=== PATIENT | male | born 1985 | race Caucasian/White ===

== ENCOUNTER 2017-02-28 18:13 | Emergency (ER) | payer SELFPAY ==
[~2017-02-28] VITALS: Ht 182.9 cm; Wt 115.9 kg
[2017-02-28 18:14] VITALS: BP 155/83
[2017-02-28] MEDS ORDERED: NORCOTAB PO (19:10)
--- NOTE | 2017-02-28 19:29 | REP ---
LEFT ANKLE SERIES: Four views of the left ankle were performed. There is no fracture or dislocation. There is mild posterior calcaneal spurring. The ankle mortise is anatomic. Rounded calcific density adjacent to the medial malleolus appear to represent an old avulsion fracture. IMPRESSION: No acute fracture or dislocation. Signed by Moises Card MD 02/28/2017 08:20 P
== END 2017-02-28 19:32 | disposition home or self-care (01) ==
LOC: M ED 18:13
DX: S93.492A Sprain of other ligament of left ankle, initial encounter (principal); W19.XXXA Unspecified fall, initial encounter; Y92.099 Unspecified place in other non-institutional residence as the place of occurrence of the external cause; Y93.89 Activity, other specified; Y99.9 Unspecified external cause status; I10 Essential (primary) hypertension; F17.200 Nicotine dependence, unspecified, uncomplicated

== ENCOUNTER → 2020-08-17 | Outpatient (REF) | payer SELFPAY ==
[~2020-08-17] MED LIST: HYDR-3715 PO
[2020-08-17 17:20] LABS: BASO % 0.5 % (0.0-1.0); EOS # 0.3 10^3/uL (0.0-0.5); EOS % 4.1 % (0.0-3.0); HEMATOCRIT 44.8 % (42.0-52.0); LYMPH # 1.6 10^3/uL (1.5-5.0); LYMPH % 25.4 % (24.0-44.0); MEAN CORPUSCULAR HEMOGLOBIN 30.4 pg (27.0-33.0); MEAN CORPUSCULAR HGB CONC 33.5 g/dl (32.0-36.5); MEAN CORPUSCULAR VOLUME 90.7 fl (80.0-96.0); MONO # 0.4 10^3/uL (0.0-0.8); MONO % 6.2 % (0.0-5.0); NEUTROPHILS # 3.9 10^3/uL (1.5-8.5); NEUTROPHILS % 63.6 % (36.0-66.0); PLATELET COUNT, AUTOMATED 175 10^3/uL (150-450); RED BLOOD COUNT 4.94 10^6/uL (4.30-6.10); WHITE BLOOD COUNT 6.1 10^3/uL (4.0-10.0)
[2020-08-17 17:44] LABS: ALBUMIN 4.5 GM/DL (3.2-5.2); ALT/SGPT 40 U/L (12-78); BILIRUBIN,TOTAL 0.3 MG/DL (0.2-1.0); BLOOD UREA NITROGEN 15 MG/DL (7-18); CARBON DIOXIDE LEVEL 28 MEQ/L (21-32); CHLORIDE LEVEL 108 MEQ/L (98-107); CHOLESTEROL LEVEL 183 MG/DL (<200); CREATININE FOR GFR 0.95 MG/DL (0.70-1.30); GLOMERULAR FILTRATION RATE > 60.0 (>60); GLUCOSE, FASTING 120 MG/DL (70-100); HDL CHOLESTEROL 61 MG/DL (>40); LDL CHOLESTEROL 92 MG/DL (<100); NON-HDL-C 122 MG/DL; POTASSIUM SERUM 4.6 MEQ/L (3.5-5.1); SODIUM LEVEL 143 MEQ/L (136-145); THYROID STIMULATING HORMONE 0.879 uIU/ML (0.358-3.740); TOTAL PROTEIN 7.3 GM/DL (6.4-8.2); TRIGLYCERIDES LEVEL 149 MG/DL (<150)
== END ==
LOC: M LAB REF 16:33
PROVIDERS: ATTEND Family Medicine Addiction Medicine
DX: I10 Essential (primary) hypertension (principal)

== ENCOUNTER 2020-09-11 20:30 | Emergency (ER) | payer BC ==
[~2020-09-11] VITALS: Ht 182.9 cm; Wt 105.6 kg
--- OUTSIDE RECORDS SUMMARY | 2020-09-11 20:37 | CCD ---
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 Results Lab Results Date Name Specimen Result Interpretation Description Value Range Status Address 08/17/2020 CBC W/ Auto Diff Normal White Blood Count 6.1 10 4.0-10.0 10 [facility]: [address] [place] [address] Normal Red Blood Count 4.94 10 4.30-6.10 10 [facility]: [address] [place] [address] Normal Hemoglobin 15.0 g/dL 13.5-17.5 g/dL [facility]: [address] [place] [address] Normal Hematocrit 44.8 % 42.0-52.0 % [facility]: [address] [place] [address] Normal Mean Corpuscular Volume 90.7 fL 80.0 -96.0 fL [facility]: [address] [place] [address] Normal Mean Corpuscular Hemoglobin 30.4 pg 27.0-33.0 pg [facility]: [address] [place] [address] Normal Mean Corpuscular HGB Conc 33.5 g/dL 32.0-36.5 g/dL [facility]: [address] [place] [address] Normal Red Cell Distribution Width 12.2 % 1 1.5-14.5 % [facility]: [address] [place] [address] Normal Platelet Count, Automated 175 10 150 -450 10 [facility]: [address] [place] [address] Normal Neutrophils % 63.6 % 36.0-66.0 % [facility]: [address] Normal Lymph % 25.4 % 24.0-44.0 % Health system: [address] High [place] % 6.2 % 0.0-5.0 % [facility]: [address] [place] [address] High Eos % 4.1 % 0.0-3.0 % [facility]: [address] [place] [address] Normal Baso % 0.5 % 0.0-1.0 % [facility]: [address] [place] [address] Normal Immature Granulocyte % 0.2 % 0-3.0 % [facility]: [address] [place] [address] Normal Nucleated Red Blood Cell % 0.0 % 0- 0 % [facility]: [address] [place] [address] Normal Neutrophils # 3.9 10 1.5-8.5 10 [facility]: [address] Normal Lymph # 1.6 10 1.5-5.0 10 [facility]: [address] [place] [address] Normal [place] # 0.4 10 0.0-0.8 10 [facility]: [address] [place] [address] Normal Eos # 0.3 10 0.0-0.5 10 [facility]: [address] Normal Baso # 0.0 10 0.0-0.2 10 [facility]: [address] [place] [address] 08/17/2020 CMP, Serum or Plasma Blood venous High Glu cose, Fasting 120 mg/dL 70-100 mg/dL [facility] nter: [address] [place] [address] Blood venous Normal Blood Urea Nitrogen 15 mg/dL 7-18 mg/dL [facility]: [address] [place] [address] Blood venous Normal Creatinine for GFR 0.95 mg/dL 0.70-1.30 mg/dL [facility]: [address] [place] [address] Blood venous Normal Glomerular Filtration Rate > 60.0 >60 [facility]: [address] Blood venous Normal Sodium Level 143 mEq/L 136-14 5 mEq/L [facility]: [address] Blood venous Normal Potassium Serum 4.6 mEq/L 3.5 -5.1 mEq/L [facility]: [address] Blood venous High Chloride Level 108 mEq/L 98-1 07 mEq/L [facility]: [address] Blood venous Normal Carbon Dioxide Level 28 mEq/L 21-32 mEq/L [facility]: [address] Blood venous Low Anion Gap 7 mEq/L 8-16 mEq/L [facility]: [address] Blood venous Normal Calcium Level 9.0 mg/dL 8.5-1 0.1 mg/dL [facility]: [address] Blood venous Normal AST/SGOT 15 U/L 7-37 U/L Sofia suhas [facility]: [address] Blood venous Normal ALT/SGPT 40 U/L 12-78 U/L [facility]: [address] Blood venous Normal Alkaline Phosphatase 84 U/L 4 5-117 U/L [facility]: [address] Blood venous Normal Bilirubin,total 0.3 mg/dL 0.2 -1.0 mg/dL [facility]: [address] Blood venous Normal Total Protein 7.3 gm/dL 6.4-8 .2 gm/dL [facility]: [address] Blood venous Normal Albumin 4.5 gm/dL 3.2-5.2 gm/ dL [facility]: [address] Blood venous Normal Albumin/globulin Ratio 1.6 [facility]: [address] 08/17/2020 Lipid Panel, Blood Normal Triglycerides Lev el 149 mg/dL <150 mg/dL [facility]: [address] Normal Cholesterol Level 183 mg/dL <200 mg/ dL Final [facility]: [address] Normal HDL Cholesterol 61 mg/dL >40 mg/dL F inal [facility]: [address] Normal LDL Cholesterol 92 mg/dL <100 mg/dL Final [facility]: [address] Normal Non-hdl-c 122 mg/dL Final [facility]: [address] Normal Cholesterol Risk Ratio 3.000 <5 Final [facility]: [address] 08/17/2020 TSH, Serum or Plasma Blood venous Normal Thyroid Stimulating Hormone 0.879 uIU/mL 0.358-3.740 uIU/mL Final [facility]: [address] Past Encounters 08/17/2020 Hypertensive Disorder; Active or Passive Immunization; Vasectomy Requested; Dizziness Nando Diaz MD: [address] [place] [address], Ph. Social History Tobacco Smoking Status Former Smoker Vaccine List Vaccine Type Tdap .5 mL Plan of Care Reminders Provider Appointments None recorded. Lab None recorded. Referral None recorded. Procedures None recorded. Surgeries None recorded. Imaging None recorded. Vitals 08/17/2020 08:20AM ESTABLISHED [id number] Height Weight BMI Blood Pressure 71 in 231 lbs 8 oz 32.3 kg/m2 126/81 mm[Hg] 04/12/2020 Height Weight Blood Pressure 71 in 266 lbs 4.96 oz 141/96 mm[Hg]
--- OUTSIDE RECORDS SUMMARY | 2020-09-11 20:37 | CCD ---
Author Author [facility] Organization [facility] Address Unknown Phone Unavailable Care Team Providers Care Wind Science And Planning Name Role Phone Adry, Colleen Unavailable Unavailable PROBLEMS No Information ALLERGIES No Known Allergies ENCOUNTERS from 1986 to 2020-09-08 Encounter Location [place] [address] Aug, Colleen Rider Urinary frequency R35.0 IMMUNIZATIONS No Information SOCIAL HISTORY Sex Assigned At : Social History Observation Description Sex Assigned At Unknown REASON FOR REFERRAL No Information VITAL SIGNS Height 67 in Aug, Weight 221 lbs Aug, BMI 34.61 kg/m2 Aug, Temperature 98.2 degrees Fahrenheit Aug, Heart Rate 67 /min Aug, Respiratory Rate 16 /min Aug, Oximetry 99 % Aug, Blood pressure systolic 140 mmHg Aug, Blood pressure diastolic 90 mmHg Aug, MEDICATIONS No Known Medications PROCEDURES No Information RESULTS Component Value Reference Range URINALYSIS Reviewed date:09/07/2020 15:29:55 Interpretation: Performing Lab: URINE COLOR. DARK YELLOW URINE APPEARANCE CLEAR URINE GLUCOSE (UA) NEGATIVE NEGATIVE URINE BILIRUBIN NEGATIVE NEGATIVE URINE KETONE NEGATIVE NEGATIVE SPECIFIC GRAVITY,URINE 1.025 1.001-1.035 URINE BLOOD 2+(MODERATE) NEGATIVE PH,URINE 5.5 5.0-9.0 URINE PROTEIN NEGATIVE NEGATIVE URINE UROBILINOGEN NORMAL(0.2-1) 0-1 URINE NITRATE NEGATIVE NEGATIVE URINE LEUKOCYTE ESTERASE NEGATIVE NEGATIVE REASON FOR VISIT UTI SX MEDICAL (GENERAL) HISTORY Type Description Date Surgical History No know Surgical history Goals Section No Information Health Concerns No Information MEDICAL EQUIPMENT No Information MENTAL STATUS No Information FUNCTIONAL STATUS No Information ASSESSMENTS Encounter Date Diagnosis Assessment Notes Treatment Notes Treatm ent Clinical Notes Aug, Urinary frequency (ICD-10 - R35.0) Urinalysis not indicative of UTI, previous culture negative. Pt advised need to f/u with PCP for further evaluation, no acute treatment at this time pending culture results. Pt v/u and agreeable. Frequent Urination: Care Instructions material was printed Time spent with pt 15 minutes. PLAN OF TREATMENT Treatment Notes Assessment Notes Clinical Notes Urinary frequency Urinalysis not indicative of UTI, previous culture negative. Pt advised need to f/u with PCP for further evaluation, no acute treatment at this time pending culture results. Pt v/u and agreeable.Frequent Urination: Care Instructions material was printed Time spent with pt 15 minutes. Treatment Notes Test Name Order Date URINE CULTURE, ROUTINE 2020-09-08 Next Appt Details with PCP Reason: Provider Name:Rosy Blount, 3 04:00:00 PM, [address] [place] [address], [phone], Insurance Providers Payer Name Payer Address Payer Phone Insured Name Patient Relati onship to Insured Coverage Start Date Coverage End Date [facility] [address] [address] [facility] [id number] [phone] Lukas Preston
--- OUTSIDE RECORDS SUMMARY | 2020-09-11 20:37 | CCD ---
Author Author [facility] Organization [facility] 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 Name Role Phone Aylin Smith Unavailable PROBLEMS No Information ALLERGIES No Known Allergies ENCOUNTERS from 1986 to 2020-09-07 Encounter Location [place] [address] Aug, Aylin Smith Dysuria R30.0 and Acute cystitis with he maturia N30.01 IMMUNIZATIONS No Information SOCIAL HISTORY Sex Assigned At : Social History Observation Description Sex Assigned At Unknown REASON FOR REFERRAL No Information VITAL SIGNS Height 67 in Aug, Temperature 98.4 degrees Fahrenheit Aug, Heart Rate 81 /min Aug, Respiratory Rate 18 /min Aug, Oximetry 97 % Aug, Blood pressure systolic 142 mmHg Aug, Blood pressure diastolic 84 mmHg Aug, MEDICATIONS No Known Medications PROCEDURES No Information RESULTS Component Value Reference Range URINALYSIS Reviewed date:08/28/2020 16:14:52 Interpretation: Performing Lab: URINE COLOR. YELLOW URINE APPEARANCE CLEAR URINE GLUCOSE (UA) NEGATIVE NEGATIVE URINE BILIRUBIN NEGATIVE NEGATIVE URINE KETONE NEGATIVE NEGATIVE SPECIFIC GRAVITY,URINE 1.025 1.001-1.035 URINE BLOOD TRACE NEGATIVE PH,URINE 5.5 5.0-9.0 URINE PROTEIN NEGATIVE NEGATIVE URINE UROBILINOGEN NORMAL(0.2-1) 0-1 URINE NITRATE NEGATIVE NEGATIVE URINE LEUKOCYTE ESTERASE NEGATIVE NEGATIVE REASON FOR VISIT possible UTI, UTI AR MEDICAL (GENERAL) HISTORY Type Description Date Surgical History No know Surgical history Goals Section No Information Health Concerns No Information MEDICAL EQUIPMENT No Information MENTAL STATUS No Information FUNCTIONAL STATUS No Information ASSESSMENTS Encounter Date Diagnosis Assessment Notes Treatment Notes Treatm ent Clinical Notes Aug, Dysuria (ICD-10 - R30.0) Time spent 10 minutes Aug, Acute cystitis with hematuria (ICD-10 - N30.01) Aug, Other Pt with UTI. Binh l treat with antibiotics and contact pt if medication needs to be changed based on culture results. Pt agrees with plan as outlined above. All questions were answered to the best of the providers ability. Patient verbalized understanding of instructions and education provided. Patient agrees if symptoms worsen or fail to improve they will return to the [facility] or go to the ER. PLAN OF TREATMENT Treatment Notes Assessment Notes Clinical Notes Dysuria Time spent 10 minute s Treatment Notes Test Name Order Date URINE CULTURE 2020-09-07 Next Appt Details prn Reason: Insurance Providers Payer Name Payer Address Payer Phone Insured Name Patient Relati onship to Insured Coverage Start Date Coverage End Date [facility] OF [facility] [address] [address] [facility] [id number] Lukas Preston self
--- OUTSIDE RECORDS SUMMARY | 2020-09-11 20:38 | CCD ---
Author Author [facility] Organization [facility] Address Unknown Phone Unavailable Care Team Providers Care Chief Librarian Branch Or Department Name Role Phone Mary Diaz MD Unavailable Unavailable Mary Diaz MD Unavailable Unavailable Mary Diaz MD Unavailable Unavailable Mary Diaz MD Unavailable Unavailable Mary Diaz MD Unavailable Unavailable Mary Diaz MD Unavailable Unavailable Mary Diaz MD Unavailable Unavailable Mary Diaz MD Unavailable Unavailable Mary Diaz MD Unavailable Unavailable Mary Diaz MD Unavailable Unavailable Mary Diaz MD Unavailable Unavailable Mary Diaz MD Unavailable Unavailable Mary Diaz MD Unavailable Unavailable Mary Diaz MD Unavailable Unavailable Mary Diaz MD Unavailable Unavailable Mary Diaz MD Unavailable Unavailable Mary Diaz MD Unavailable Unavailable Mary Diaz MD Unavailable Unavailable Mary Diaz MD Unavailable Unavailable Mary Diaz MD Unavailable Unavailable Mary Diaz MD Unavailable Unavailable Mary Diaz MD Unavailable Unavailable Mary Diaz MD Unavailable Unavailable Mary Diaz MD Unavailable Unavailable Mary Diaz MD Unavailable Unavailable Mary Diaz MD Unavailable Unavailable Mary Diaz MD Unavailable Unavailable Mary Diaz MD Unavailable Unavailable Mary Diaz MD Unavailable Unavailable Mary Diaz MD Unavailable Unavailable Mary Diaz MD Unavailable Unavailable Mary Diaz MD Unavailable Unavailable Mary Diaz MD Unavailable Unavailable Mary Diaz MD Unavailable Unavailable Mary Diaz MD Unavailable Unavailable Mary Diaz MD Unavailable Unavailable Mary Diaz MD Unavailable Unavailable Mary Diaz MD Unavailable Unavailable Mary Diaz MD Unavailable Unavailable Mary Diaz MD Unavailable Unavailable Mary Diaz MD Unavailable Unavailable Mary Diaz MD Unavailable Unavailable Mary Diaz MD Unavailable Unavailable Mary Diaz MD Unavailable Unavailable Mary Diaz MD Unavailable Unavailable Mary Diaz MD Unavailable Unavailable Mary Diaz MD Unavailable Unavailable Mary Diaz MD Unavailable Unavailable Mary Diaz MD Unavailable Unavailable Mary Diaz MD Unavailable Unavailable Mary Diaz MD Unavailable Unavailable Mary Diaz MD Unavailable Unavailable Mary Diaz MD Unavailable Unavailable Mary Diaz MD Unavailable Unavailable Mary Diaz MD Unavailable Unavailable Mary Diaz MD Unavailable Unavailable Mary Diaz MD Unavailable Unavailable Mary Diaz MD Unavailable Unavailable Mary Diaz MD Unavailable Unavailable Mary Diaz MD Unavailable Unavailable Mary Diaz MD Unavailable Unavailable Mary Diaz MD Unavailable Unavailable Mary Diaz MD Unavailable Unavailable Mary Diaz MD Unavailable Unavailable Mary Diaz MD Unavailable Unavailable Joe, Mary Collier MD Unavailable Unavailable Joe, Mary Collier MD Unavailable Unavailable Mary Diaz MD Unavailable Unavailable Mary Diaz MD Unavailable Unavailable Joe, Mary Collier MD Unavailable Unavailable Mary Diaz MD Unavailable Unavailable Joe, Mary Collier MD Unavailable Unavailable Joe, Mary Collier MD Unavailable Unavailable Joe, Mary Collier MD Unavailable Unavailable Joe, Mary Collier MD Unavailable Unavailable Joe, Mary Collier MD Unavailable Unavailable Mary Diaz MD Unavailable Unavailable Joe, Mary oCllier MD Unavailable Unavailable Mary Diaz MD Unavailable Unavailable Mary Diaz MD Unavailable Unavailable Mary Diaz MD Unavailable Unavailable Mary Diaz MD Unavailable Unavailable Mary Diaz MD Unavailable Unavailable Mary Diaz MD Unavailable Unavailable Mary Diaz MD Unavailable Unavailable Mary Diaz MD Unavailable Unavailable Mary Diaz MD Unavailable Unavailable Mary Diaz MD Unavailable Unavailable Mary Diaz MD Unavailable Unavailable Adry, Reginah W Colleen STEAK SAUCE MAKER-C Unavailable Unavailabl e Adry, Reginah W Colleen STEAK SAUCE MAKER-C Unavailable Unavailabl e Adry, Reginah W Colleen STEAK SAUCE MAKER-C Unavailable Unavailabl e Adry, Reginah W Colleen STEAK SAUCE MAKER-C Unavailable Unavailabl e Adry, Reginah W Colleen STEAK SAUCE MAKER-C Unavailable Unavailabl e Adry, Reginah W Colleen STEAK SAUCE MAKER-C Unavailable Unavailabl e Adry, Reginah W Colleen STEAK SAUCE MAKER-C Unavailable Unavailabl e Adry, Reginah W Colleen STEAK SAUCE MAKER-C Unavailable Unavailabl e Adry, Reginah W Colleen STEAK SAUCE MAKER-C Unavailable Unavailabl e Adry, Reginah W Oclleen STEAK SAUCE MAKER-C Unavailable Unavailabl e Adry, Reginah W Colleen STEAK SAUCE MAKER-C Unavailable Unavailabl e Adry, Reginah W Colleen STEAK SAUCE MAKER-C Unavailable Unavailabl e Adry, Vinod W Colleen STEAK SAUCE MAKER-C Unavailable Unavailabl e Adry, Vinod W Colleen STEAK SAUCE MAKER-C Unavailable Unavailabl e Adry, Manuelinaelmer W Colleen STEAK SAUCE MAKER-C Unavailable Unavailabl e Adry, Vinod W Colleen STEAK SAUCE MAKER-C Unavailable Unavailabl e Adry, Reginaelmer W Colleen STEAK SAUCE MAKER-C Unavailable Unavailabl e Adry, Reginaelmer W Colleen STEAK SAUCE MAKER-C Unavailable Unavailabl e Adry, Reginaelmer W Colleen STEAK SAUCE MAKER-C Unavailable Unavailabl e Adry, Reginaelmer W Colleen STEAK SAUCE MAKER-C Unavailable Unavailabl e Adry, Manuelinaelmer W Colleen STEAK SAUCE MAKER-C Unavailable Unavailabl e Adry, Vinod W Colleen STEAK SAUCE MAKER-C Unavailable Unavailabl e Adry, Vinod W Colleen STEAK SAUCE MAKER-C Unavailable Unavailabl e Adry, Vinod W Colleen STEAK SAUCE MAKER-C Unavailable Unavailabl e Adry, Manuelinaelmer W Colleen STEAK SAUCE MAKER-C Unavailable Unavailabl e Adry, Vinod W Colleen STEAK SAUCE MAKER-C Unavailable Unavailabl e Adry, Vinod W Colleen STEAK SAUCE MAKER-C Unavailable Unavailabl e Adry, Vinod W Colleen STEAK SAUCE MAKER-C Unavailable Unavailabl e Adry, Vinod W Colleen STEAK SAUCE MAKER-C Unavailable Unavailabl e Adry, Vinod W Colleen STEAK SAUCE MAKER-C Unavailable Unavailabl e Adry, Vinod W Colleen STEAK SAUCE MAKER-C Unavailable Unavailabl e Adry, Regfranco W Colleen STEAK SAUCE MAKER-C Unavailable Unavailabl e Mary Diaz MD Unavailable Unavailable Mary Diaz MD Unavailable Unavailable Mary Diaz MD Unavailable Unavailable Mary Diaz MD Unavailable Unavailable Mary Diaz MD Unavailable Unavailable Mary Diaz MD Unavailable Unavailable Mary Diaz MD Unavailable Unavailable Mary Diaz MD Unavailable Unavailable Mary Diaz MD Unavailable Unavailable Mary Diaz MD Unavailable Unavailable Mary Diaz MD Unavailable Unavailable Mary Diaz MD Unavailable Unavailable Mary Diaz MD Unavailable Unavailable Mary Diaz MD Unavailable Unavailable Mary Diaz MD Unavailable Unavailable Mary Diaz MD Unavailable Unavailable Mayr Diaz MD Unavailable Unavailable Mary Diaz MD Unavailable Unavailable Mary Diaz MD Unavailable Unavailable Mary Diaz MD Unavailable Unavailable Mary Diaz MD Unavailable Unavailable Mary Diaz MD Unavailable Unavailable Mayr Diaz MD Unavailable Unavailable Mary Diaz MD Unavailable Unavailable Mary Diaz MD Unavailable Unavailable Mary Diaz MD Unavailable Unavailable Mary Diaz MD Unavailable Unavailable Mary Diaz MD Unavailable Unavailable Mary Diaz MD Unavailable Unavailable Mary Diaz MD Unavailable Unavailable Mary Diaz MD Unavailable Unavailable Mary Diaz MD Unavailable Unavailable Mary Diaz MD Unavailable Unavailable Mary Diaz MD Unavailable Unavailable Mary Diaz MD Unavailable Unavailable Mary Diaz MD Unavailable Unavailable Mary Diaz MD Unavailable Unavailable Mary Diaz MD Unavailable Unavailable Mary Diaz MD Unavailable Unavailable Mary Diaz MD Unavailable Unavailable Mary Diaz MD Unavailable Unavailable Mary Diaz MD Unavailable Unavailable Mary Diaz MD Unavailable Unavailable Mary Diaz MD Unavailable Unavailable Mary Diaz MD Unavailable Unavailable Mary Diaz MD Unavailable Unavailable Mary Diaz MD Unavailable Unavailable Mary Diaz MD Unavailable Unavailable Mary Diaz MD Unavailable Unavailable Mary Diaz MD Unavailable Unavailable Mary Diaz MD Unavailable Unavailable Mary Diaz MD Unavailable Unavailable Mary Diaz MD Unavailable Unavailable Mary Diaz MD Unavailable Unavailable Mary Diaz MD Unavailable Unavailable Mary Diaz MD Unavailable Unavailable Mary Diaz MD Unavailable Unavailable Mary Diaz MD Unavailable Unavailable Mary Diaz MD Unavailable Unavailable Mary Diaz MD Unavailable Unavailable Mary Diaz MD Unavailable Unavailable Mary Diaz MD Unavailable Unavailable Mary Diaz MD Unavailable Unavailable Mary Diaz MD Unavailable Unavailable Mary Diaz MD Unavailable Unavailable Mary Diaz MD Unavailable Unavailable Mary Diaz MD Unavailable Unavailable Mary Diaz MD Unavailable Unavailable Mary Diaz MD Unavailable Unavailable Mary Diaz MD Unavailable Unavailable Mary Diaz MD Unavailable Unavailable Mary Diaz MD Unavailable Unavailable Mary Diaz MD Unavailable Unavailable Mary Diaz MD Unavailable Unavailable Mary Diaz MD Unavailable Unavailable Mary Diaz MD Unavailable Unavailable Mary Diaz MD Unavailable Unavailable Mary Diaz MD Unavailable Unavailable Mary Diaz MD Unavailable Unavailable Mary Diaz MD Unavailable Unavailable Mary Diaz MD Unavailable Unavailable Mary Diaz MD Unavailable Unavailable Mary Diaz MD Unavailable Unavailable Mary Diaz MD Unavailable Unavailable Mary Diaz MD Unavailable Unavailable Mary Diaz MD Unavailable Unavailable Mary Diaz MD Unavailable Unavailable Mary Diaz MD Unavailable Unavailable Mary Diaz MD Unavailable Unavailable Rydberg, Aylin PA Unavailable Unavailable Rydberg, Aylin PA Unavailable Unavailable Rydberg, Aylin PA Unavailable Unavailable Rydberg, Aylin PA Unavailable Unavailable Rydberg, Aylin PA Unavailable Unavailable Rydberg, Aylin PA Unavailable Unavailable Rydberg, Aylin PA Unavailable Unavailable Rydberg, Aylin PA Unavailable Unavailable Rydberg, Aylin PA Unavailable Unavailable Rydberg, Aylin PA Unavailable Unavailable Rydberg, Aylin PA Unavailable Unavailable Rydberg, Aylin PA Unavailable Unavailable Rydberg, Aylin PA Unavailable Unavailable Rydberg, Aylin PA Unavailable Unavailable Rydberg, Aylin PA Unavailable Unavailable Rydberg, Aylin PA Unavailable Unavailable Rydberg, Aylin PA Unavailable Unavailable Rydberg, Aylin PA Unavailable Unavailable Rydberg, Aylin PA Unavailable Unavailable Rydberg, Aylin PA Unavailable Unavailable Rydberg, Aylin PA Unavailable Unavailable Rydberg, Aylin PA Unavailable Unavailable Adry, Reginah W Colleen STEAK SAUCE MAKER-C Unavailable Unavailabl e Adry, Reginah W Colleen STEAK SAUCE MAKER-C Unavailable Unavailabl e Adry, Reginah W Colleen STEAK SAUCE MAKER-C Unavailable Unavailabl e Adry, Reginah W Colleen STEAK SAUCE MAKER-C Unavailable Unavailabl e Adry, Regina W Colleen STEAK SAUCE MAKER-C Unavailable Unavailabl e Adry, Regina W Colleen STEAK SAUCE MAKER-C Unavailable Unavailabl e Adry, Regina W Colleen STEAK SAUCE MAKER-C Unavailable Unavailabl e Adry, Regina W Colleen STEAK SAUCE MAKER-C Unavailable Unavailabl e Adry, Regina W Colleen STEAK SAUCE MAKER-C Unavailable Unavailabl e Adry, Regina W Colleen STEAK SAUCE MAKER-C Unavailable Unavailabl e Adry, Regina W Colleen STEAK SAUCE MAKER-C Unavailable Unavailabl e Adry, Regina W Colleen STEAK SAUCE MAKER-C Unavailable Unavailabl e Adry, Regina W Colleen STEAK SAUCE MAKER-C Unavailable Unavailabl e Adry, Regina W Colleen STEAK SAUCE MAKER-C Unavailable Unavailabl e Adry, Regina W Colleen STEAK SAUCE MAKER-C Unavailable Unavailabl e Adry, Reginah W Colleen STEAK SAUCE MAKER-C Unavailable Unavailabl e Adry, Reginah W Colleen STEAK SAUCE MAKER-C Unavailable Unavailabl e Adry, Reginah W Colleen STEAK SAUCE MAKER-C Unavailable Unavailabl e Adry, Reginah W Colleen STEAK SAUCE MAKER-C Unavailable Unavailabl e Adry, Reginah W Colleen STEAK SAUCE MAKER-C Unavailable Unavailabl e Adry, Reginah W Colleen STEAK SAUCE MAKER-C Unavailable Unavailabl e Adry, Reginah W Colleen STEAK SAUCE MAKER-C Unavailable Unavailabl e Adry, Reginah W Colleen STEAK SAUCE MAKER-C Unavailable Unavailabl e Adry, Reginah W Colleen STEAK SAUCE MAKER-C Unavailable Unavailabl e Adry, Reginah W Colleen STEAK SAUCE MAKER-C Unavailable Unavailabl e Adry, Reginah W Colleen STEAK SAUCE MAKER-C Unavailable Unavailabl e Adry, Reginah W Colleen STEAK SAUCE MAKER-C Unavailable Unavailabl e Adry, Reginah W Colleen STEAK SAUCE MAKER-C Unavailable Unavailabl e Adry, Reginah W Colleen STEAK SAUCE MAKER-C Unavailable Unavailabl e Adry, Reginah W Colleen STEAK SAUCE MAKER-C Unavailable Unavailabl e Adry, Reginaelmer W Colleen STEAK SAUCE MAKER-C Unavailable Unavailabl e Adry, Reginah W Colleen STEAK SAUCE MAKER-C Unavailable Unavailabl e [facility] Unavailable Unavailable Rydberg, Aylin PA Unavailable Unavailable Rydberg, Aylin PA Unavailable Unavailable Rydberg, Aylin PA Unavailable Unavailable Rydberg, Aylin PA Unavailable Unavailable Rydberg, Aylin PA Unavailable Unavailable Rydberg, Aylin PA Unavailable Unavailable Rydberg, Aylin PA Unavailable Unavailable Rydberg, Aylin PA Unavailable Unavailable Rydberg, Aylin PA Unavailable Unavailable Rydberg, Aylin PA Unavailable Unavailable Rydberg, Aylin PA Unavailable Unavailable Rydberg, Aylin PA Unavailable Unavailable Rydberg, Aylin PA Unavailable Unavailable Rydberg, Aylin PA Unavailable Unavailable Rydberg, Aylin PA Unavailable Unavailable Rydberg, Aylin PA Unavailable Unavailable Rydberg, Aylin PA Unavailable Unavailable Rydberg, Aylin PA Unavailable Unavailable Rydberg, Aylin PA Unavailable Unavailable Rydberg, Aylin PA Unavailable Unavailable Rydberg, Aylin PA Unavailable Unavailable Luis Aylinelaina HOFFMAN Unavailable Unavailable Re-disclosure Warning The records that you are about to access may contain information from federally-assisted alcohol or drug abuse programs. If such information is present, then the following federally mandated warning applies: This information has been disclosed to you from records protected by federal confidentiality rules (42 CFR part 2). The federal rules prohibit you from making any further disclosure of this information unless further disclosure is expressly permitted by the written consent of the person to whom it pertains or as otherwise permitted by 42 CFR part 2. A general authorization for the release of medical or other information is NOT sufficient for this purpose. The Federal rules restrict any use of the information to criminally investigate or prosecute any alcohol or drug abuse patient.The records that you are about to access may contain highly sensitive health information, the redisclosure of which is protected by Article 27-F of the [facility] Public Health law. If you continue you may have access to information: Regarding HIV / AIDS; Provided by facilities licensed or operated by the [facility] Office of Mental Health; or Provided by the [facility] Office for People With Developmental Disabilities. If such information is present, then the following [facility] mandated warning applies: This information has been disclosed to you from confidential records which are protected by state law. State law prohibits you from making any further disclosure of this information without the specific written consent of the person to whom it pertains, or as otherwise permitted by law. Any unauthorized further disclosure in violation of state law may result in a fine or penitentiary sentence or both. A general authorization for the release of medical or other information is NOT sufficient authorization for further disc losure. Encounters Encounter Providers Location Date Indications Data Source(s ) Outpatient Attender: Colleen RUIZ EMERGENCY ROOM-LAB REF 09/07/2020 03:05:00 PM EST - 09/07/2020 03:05:00 PM [facility] Outpatient Attender: Colleen SHARMACConsultant: [facility] [id number] 09/07/2020 03:00:00 PM [facility] Outpatient Attender: Colleen RUIZ 09/07/2020 02:10:0 0 PM [facility] 09/07/2020 12:00:00 AM EST eCW1 ([facility]) Outpatient Attender: Aylin HOFFMAN EMERGENCY ROOM-LAB R EF 08/28/2020 03:45:00 PM EST - 08/28/2020 03:45:00 PM EST [facility] Outpatient Attender: Aylin HOFFMAN 08/28/2020 03:40:00 PM [facility] Outpatient Attender: Aylin Smith PAConsultant: [facility] [id number] 08/28/2020 03:38:00 PM EST [facility] Outpatient [facility] 08/28/2020 12:00:00 AM EST eCW1 ([facility]) Nando Diaz MD: [address] [place] [phone], Ph. Attender: Nando Diaz MD [facility] Medical 08/17/2020 12:00:00 AM EST [facility] ([facility]) Outpatient Attender: Nando Diaz MD 05/31/2020 10:01:01 AM EDT [facility] Outpatient Attender: Nando Diaz MD 05/19/2020 12:22:02 PM EDT [facility] Outpatient Attender: Nando Diaz MD 05/18/2020 09:52:00 AM EDT [facility] Outpatient Attender: Nando Diaz MD 04/13/2020 08:13:00 AM EDT [facility] Outpatient Attender: Nando Diaz MD 04/13/2020 08:01:01 AM EDT [facility] Outpatient Attender: Nando Diaz MD 04/13/2020 07:59:00 AM EDT [facility] Outpatient Attender: Nando Diaz MD 04/12/2020 02:56:01 PM EDT [facility] Outpatient Attender: Nando Diaz MD 04/12/2020 02:56:00 PM EDT [facility] Outpatient Attender: Nando Diaz MD 04/12/2020 10:47:00 AM EDT [facility] Outpatient Attender: Nando Diaz MD 04/11/2020 02:58:11 PM EDT [facility] Immunizations Vaccine Date Status Description Data Source(s) Tdap 08/17/2020 09:04:00 AM EST completed 08/17/2020 0.5 mL [place] ([facility]) Medications Medication Brand Name Start Date Product Form Dose Route Admi nistrative Instructions Pharmacy Instructions Status Indications Reaction Description Data Source(s) Sulfamethoxazole 800 MG / Trimethoprim 160 MG Oral Tab let 800-160 mg SULFAMETHOXAZOLE/TRIMETHOPRIM 08/29/2020 12:00:00 AM EST tablet 10 TAKE ONE TABLET BY MOUTH TWICE A DAY TAKE ONE TABLET BY MOUTH TWICE A DAY SOLD: 08/29/2020 [facility] 50 mg 05/18/2020 12:00:00 AM EDT tablet 30 TAKE ONE TABLET BY MOUTH ONCE DAILY TAKE ONE TABLET BY MOUTH ONCE DAILY SOLD: 05/22/2020 [facility] 50 mg 04/12/2020 12:00:00 AM EDT tablet 30 TAKE ONE TABLET BY MOUTH EVERY DAY TAKE ONE TABLET BY MOUTH EVERY DAY SOLD: 04/13/2020 [facility] Insurance Providers Payer name Policy type / Coverage type Policy ID Covered green party ID Covered green party's relationship to foley Policy [place] Plan Information [employer] [place] [id number] SPO VYS [id number] [place] PPO 302/[id number] SELF PAY ONLY [id number] SP [id number] Self Pay P [id number] S [id number] Self Pay P UNAVAILABLE S UNAVAILA BLE SELF PAY ONLY UNAVAILABLE SP UNAV AILABLE Problems, Conditions, and Diagnoses Code Display Name Description Problem Type Effective Dates Data Source(s) V04.81 Needs vaccination for influenza Needs vaccination for influenza 05/19/2020 12:21:46 PM EDT [facility] 401.9 Essential hypertension Essential hypertension 04/12/2020 02:55:40 PM EDT [facility] [id number] Hypertensive disorder Hypertensive Disorder Problem 04/12/2020 12:00:00 AM EDT [facility]) R35.0 Frequency of micturition FREQUENCY OF MICTURITION Diag nosis 09/07/2020 03:05:00 PM [facility] R30.0 Dysuria DYSURIA Diagnosis 08/28/2020 03:40:00 PM [facility] N30.01 Acute cystitis with hematuria ACUTE CYSTITIS WITH OJ TURIA Diagnosis 08/28/2020 03:40:00 PM [facility] Results ID Date Data Source [id number] 09/11/2020 02:35:00 PM [facility] Name Value Range Interpretation Code Description Data Carole rce(s) Supporting Document(s) [facility] ID Date Data Source [id number] 09/07/2020 03:24:00 PM [facility] Name Value Range Interpretation Code Description Data Carole rce(s) Supporting Document(s) URINE RBC 15-20 /hpf 0-3 [facility] URINE WBC 0-2 /hpf 0-5 [facility] URINE BACTERIA 1+ NONE SEEN [facility] URINE MUCUS 2+ NEGATIVE [facility] ID Date Data Source [id number] 09/07/2020 03:24:00 PM [facility] Name Value Range Interpretation Code Description Data Carole rce(s) Supporting Document(s) URINE COLOR. DARK YELLOW [facility] URINE APPEARANCE CLEAR [facility] URINE GLUCOSE (UA) NEGATIVE mg/dL NEGATIVE [facility] URINE BILIRUBIN NEGATIVE NEGATIVE [facility] URINE KETONE NEGATIVE mg/dL NEGATIVE [facility] al SPECIFIC GRAVITY,URINE 1.025 1.001-1.035 [facility] URINE BLOOD 2+(MODERATE) NEGATIVE [facility] PH,URINE 5.5 5.0-9.0 [facility] URINE PROTEIN NEGATIVE mg/dL NEGATIVE [facility] URINE UROBILINOGEN NORMAL(0.2-1) mg/dL 0-1 [facility] URINE NITRATE NEGATIVE NEGATIVE [facility] URINE LEUKOCYTE ESTERASE NEGATIVE NEGATIVE [facility] ID Date Data Source [id number] 09/07/2020 12:00:00 AM EST eCW1 ([facility]) Name Value Range Interpretation Code Description Data Carole rce(s) Supporting Document(s) DARK YELLOW URINE COLOR. eCW1 ([facility]) NEGATIVE NEGATIVE URINE BILIRUBIN eCW1 ([facility]note 3[facility] CLEAR URINE APPEARANCE eCW1 ([facility]) NEGATIVE NEGATIVE URINE GLUCOSE (UA) eCW1 ( [facility]) NEGATIVE NEGATIVE URINE KETONE eCW1 ([facility]) 5.5 5.0-9.0 PH,URINE eCW1 ([facility]) 2+(MODERATE) NEGATIVE URINE BLOOD eCW1 ([facility]) 1.025 1.001-1.035 SPECIFIC GRAVITY,URINE e CW1 ([facility]) NEGATIVE NEGATIVE URINE PROTEIN eCW1 ([facility]) NEGATIVE NEGATIVE URINE LEUKOCYTE ESTERASE eCW1 ([facility]) NORMAL(0.2-1) 0-1 URINE UROBILINOGEN eCW 1 ([facility]) NEGATIVE NEGATIVE URINE NITRATE eCW1 ([facility]) ID Date Data Source [id number] 08/31/2020 01:28:00 PM EST [facility] fidelina Name Value Range Interpretation Code Description Data Carole rce(s) Supporting Document(s) [facility] ID Date Data Source [id number] 08/28/2020 04:03:00 PM [facility] l Name Value Range Interpretation Code Description Data Carole rce(s) Supporting Document(s) URINE RBC 1-3 /hpf 0-3 [facility] URINE WBC 1-3 /hpf 0-5 [facility] ID Date Data Source [id number] 08/28/2020 03:56:00 PM EST [facility] l Name Value Range Interpretation Code Description Data Carole rce(s) Supporting Document(s) URINE COLOR. [facility] URINE APPEARANCE CLEAR [facility] l URINE GLUCOSE (UA) NEGATIVE mg/dL NEGATIVE [facility] URINE BILIRUBIN NEGATIVE NEGATIVE [facility] URINE KETONE NEGATIVE mg/dL NEGATIVE [facility] SPECIFIC GRAVITY,URINE 1.025 1.001-1.035 [facility] URINE BLOOD TRACE NEGATIVE H [facility] PH,URINE 5.5 5.0-9.0 [facility] URINE PROTEIN NEGATIVE mg/dL NEGATIVE [facility] fidelina URINE UROBILINOGEN NORMAL(0.2-1) mg/dL 0-1 [facility] URINE NITRATE NEGATIVE NEGATIVE [facility] URINE LEUKOCYTE ESTERASE NEGATIVE NEGATIVE [facility] ID Date Data Source [id number] 08/17/2020 09:00:00 AM EST [facility]) Name Value Range Interpretation Code Description Data Carole rce(s) Supporting Document(s) thyroid stimulating hormone 0.879 uIU/mL 0.358-3.740 normal Thyroid Stimulating Hormone [facility] ([facility]) ID Date Data Source [id number] 08/17/2020 09:00:00 AM EST [facility] ([facility]) Name Value Range Interpretation Code Description Data Carole rce(s) Supporting Document(s) triglycerides level 149 mg/dL <150 normal Triglycerides Le марина [facility] ([facility]) cholesterol level 183 mg/dL <200 normal Cholesterol Level [facility] ([facility]) HDL cholesterol 61 mg/dL >40 normal HDL Cholesterol ATHE ([facility]) Cholesterol in LDL [Mass/volume] in Serum or Plasma 92 mg/dL <1 00 normal LDL Cholesterol [facility] ([facility]) cholesterol risk ratio <5 normal Cholesterol R isk Ratio [facility] ([facility]) non-HDL-C 122 mg/dL normal Non-hdl-c [facility] ([facility]) ID Date Data Source [id number] 08/17/2020 09:00:00 AM EST [facility] ([facility]) Name Value Range Interpretation Code Description Data Carole rce(s) Supporting Document(s) blood urea nitrogen 15 mg/dL 7-18 normal Blood Urea Nitro gen [facility] ([facility]) glucose, fasting 120 mg/dL 70-100 Above high normal Glucose, Fas ting [facility] ([facility]) sodium level 143 mEq/L 136-145 normal Sodium Level [facility] (No [facility]) creatinine for GFR 0.95 mg/dL 0.70-1.30 normal Creatinine for GF R [facility] ([facility]) glomerular filtration rate > 60.0 >60 normal Glomerula r Filtration Rate [facility] ([facility]) potassium serum 4.6 mEq/L 3.5-5.1 normal Potassium Serum ATHE NA ([facility]) carbon dioxide level 28 mEq/L 21-32 normal Carbon Dioxide Level [facility] ([facility]) anion gap 7 mEq/L 8-16 Below low normal Anion Gap [facility] ( [facility]) chloride level 108 mEq/L 98-107 Above high normal Chloride Level [facility] ([facility]) alkaline phosphatase 84 U/L 45-117 normal Alkaline Phosph atase [facility] ([facility]) ALT/SGPT 40 U/L 12-78 normal ALT/SGPT [facility] ([facility]) calcium level 9.0 mg/dL 8.5-10.1 normal Calcium Level [facility] ( [facility]) bilirubin,total 0.3 mg/dL 0.2-1.0 normal Bilirubin,total ATHE NA ([facility]) AST/SGOT 15 U/L 7-37 normal AST/SGOT [facility] ([facility]) total protein 7.3 gm/dL 6.4-8.2 normal Total Protein [facility] ( [facility]) albumin/globulin ratio normal Albumin/globu sanchez Ratio [facility] ([facility]) albumin 4.5 gm/dL 3.2-5.2 normal Albumin [facility] ([facility]) ID Date Data Source [id number] 08/17/2020 09:00:00 AM EST [facility] ([facility]) Name Value Range Interpretation Code Description Data Carole rce(s) Supporting Document(s) white blood count 6.1 10 4.0-10.0 normal White Blood Count [facility] ([facility]) red blood count 4.94 10 4.30-6.10 normal Red Blood Count [facility] ([facility]) hemoglobin 15.0 g/dL 13.5-17.5 normal Hemoglobin [facility] ([facility]) mean corpuscular volume 90.7 fL 80.0-96.0 normal Mean Corpusc ular Volume [facility] ([facility]) hematocrit 44.8 % 42.0-52.0 normal Hematocrit [facility] ([facility]) mean corpuscular hemoglobin 30.4 pg 27.0-33.0 normal Mean Corpuscular Hemoglobin [facility] ([facility]) red cell distribution width 12.2 % 11.5-14.5 normal Red Cell Distribution Width [facility] ([facility]) mean corpuscular HGB conc 33.5 g/dL 32.0-36.5 normal Mean Corpu scular HGB Conc [facility] ([facility]) platelet count, automated 175 10 150-450 normal Platelet C ount, Automated [place] ([facility]) neutrophils % 63.6 % 36.0-66.0 normal Neutrophils % [place] ( [facility]) mono % 6.2 % 0.0-5.0 Above high normal [place] % [place] ([facility]) eos % 4.1 % 0.0-3.0 Above high normal Eos % [place] ([facility]) baso % 0.5 % 0.0-1.0 normal Baso % [place] ([facility]) lymph % 25.4 % 24.0-44.0 normal Lymph % [place] ([facility]) neutrophils # 3.9 10 1.5-8.5 normal Neutrophils # [place] ( [facility]) lymph # 1.6 10 1.5-5.0 normal Lymph # [place] ([facility]) nucleated red blood cell % 0.0 % 0-0 normal Nucleated Red Blood Cell % [place] ([facility]) immature granulocyte % 0.2 % 0-3.0 normal Immature Gran ulocyte % [place] ([facility]) mono # 0.4 10 0.0-0.8 normal [place] # [place] ([facility]) eos # 0.3 10 0.0-0.5 normal Eos # [place] ([facility]) baso # 0.0 10 0.0-0.2 normal Baso # [place] ([facility]) ID Date Data Source [id number] 05/18/2020 08:16:53 AM EDT [facility] Measurements & CalculationsHeight: 71 inches (5 ft. 11 in.) 180.34 cm Weight: 245 pounds 111.36 kg Body Mass Index (BMI): 34.29BMI Interpretation: ObeseBody Surface Area (BSA): 2.30Weight Management Education Done (Nutrition/Physical Activity)Vital SignsTemperature: 98.0FPulse Rate: 93 beats/minuteRespiratory Rate: 16 respirations/minuteBlood Pressure: 149/90 O2 Saturation: 98% Vital Signs performed by: Kenisha Bay MA, May 18, 2020 8:20 AMInitial Intake Information From: patientRoom #: 15Infectious Disease / Travel ScreeningRecent travel for you or any close contacts? NoHave you had any close contact with anyone diagnosed with or under investigation for COVID-19 (coronavirus)? NoFever? NoRespiratory symptoms: cough, cold, congestion, shortness of breath, difficulty breathing? NoLoss of smell? NoLoss of taste? NoSmoking, Tobacco, Vaping or Smoke Exposure StatusSmoke Status: former smokerTobacco Use: NoDo you vape? NoHealthcare HistorySince your last office visit...Have you been admitted to the hospital? NoHave you been to an emergency room (ER) or urgent care clinic? NoHave you seen another healthcare provider? NoHave you seen a dentist? NoIntake performed by: Kenisha Bay MA, May 18, 2020 8:19 AMRate Your HealthIn general, would you say your health is? FairPain AssessmentAre you currently having any pain which... You would like your provider to address? No Affects your activity level? NoDepression Screening - PHQ-2Over the last two weeks, have you... Had little interest or pleasure in doing things? Not at all Been feeling down, depressed, or hopeless? Not at all PHQ-2 Score: 0Anxiety Screening - NISHI-2Over the last two weeks, have you been... Feeling nervous, anxious, or on edge? Not at all Unable to stop or control worrying? Not at all NISHI-2 Score: 0Screening, Brief Intervention, & Referral to Treatment (SBIRT)Pre-Screening Questions How many times have you have 5 or more drinks in a day? 0How many times have you used an illegal drug or used a prescription medication for a non-medical reason? 0Performed by: Kenisha Bay MA, May 18, 2020 8:19 AMPatient History Medical History:Surgical History:Family History:Hypertension (Mother)Cancer - Lung (Mother)Rheumatoid arthritis (Mother)Anxiety (Father)Depression (Father)Suicide attempts (Father)Substance abuse (Father)[place] - Male under age 55 (Maternal Grandfather)Myocardial infarction ([place]) (Paternal Grandfather)Cancer - Colorectal (Maternal Grandmother)Cancer - Lung (Paternal Grandmother)Social/Personal History: Chief ComplaintHTNHistory of Present Illness (HPI)Has lost a lot of weight since last visit through intermittent fasting andstaying active and is feeling good about this. Taking the blood pres sure medication as directed. Blood pressure at home is 130s systolic. HPI performed by: Nando Diaz MD, May 18, 2020 9:46 AMProblem ReviewProblem List was reviewed and/or updated during this visit.Medication Reconciliation & ReviewMedication List was reviewed and/or updated during this visit, including review of any xeoz-yea-gmafwte medications, herbal therapies, and/or supplements.Allergy ReviewAllergy List was reviewed and/or updated during this visit. Patient has no known allergies.Adult Preventive CareProvider Calculated and Reviewed all Clinical Protocols for patient today. Labs/Meds /Other Counseling-Nutrition and Physical Activity:BMI Interpretation: Obese (05/18/2020) Counseling: Done (05/18/2020) Physical Activity: Done (05/18/2020)Review of Systems General: Denies dizziness, fatigue. Cardiovascular: Denies chest pain. Respiratory: Denies shortness of breath. Gastrointestinal: Denies diarrhea, constipation. Genitourinary: Denies pain with urination, urinary frequency, urinary urgency. Physical ExamGeneral Appearance: well nourished, well hydrated, no acute distressRespiratory, Auscultation: clear to auscultation bilaterally; no rales, rhonchi, or wheezesRespiratory, Effort: no intercostal retractions or use of accessory musclesCardiovascular, Auscultation: S1, S2 audible; no murmur, rub, or gallop; RRRPeripheral Circulation: no clubbing, cyanosis, edema, or varicositiesGait & Station: normalSkin, Inspection: no rashes, lesions, or ulcerationsOrientation: oriented to time, place, and personMood & Affect: no depression, anxiety, or agitationJudgment & Insight: intactRate Your HealthIn general, would you say your health is? FairAssessment & Plan Problems:Assessed:Essential hypertension (ICD-401.9) ([id number]) Assessment: Instructions: Blood pressure is still a bit high today but lower at home. He is losing weight. There may be a measure of white coat hypertension. I would like to hold med changes, continue current plan and recheck 3 months.He will bring his home cuff in for comparison.Patient Instructions/Care Plan: Essential hypertension: Blood pressure is still a bit high today but lower at home. He is losing weight. There may be a measure of white coat hypertension. I would like to hold med changes, continue current plan and recheck 3 months.He will bring his home cuff in for comparison. Plan developed in collaboration with patient and/or familyMedications:COZAAR 50 MG ORAL TABLETMedication Changes:Refilled:COZAAR 50 MG ORAL TABLET-One tablet by mouth every day Qty: 30[Tablet] Refills: 2 Method: ElectronicAllergies:No Known Allergies (updated 05/18/2020) Orders:Adult - Ofc Vst, EST, Level III [CPT-56491] Medications:COZAAR 50 MG ORAL TABLET (LOSARTAN POTASSIUM) One tablet by mouth every day #30[Tablet] x 2 Route:OR AL Entered and Authorized by: Nando Diaz MD Method used: Electronically to [facility] (retail) [address] [place] [address] Note to Pharmacy: Route: ORAL; RxID: [id number] signed by Nando Diaz MD on 05/18/2020 at 9:51 AM Adult Questionnaire1) Does the patient have a long-term health problem with heart disease, lung disease, asthma, kidney disease, metabolic disease (e.g., diabetes), anemia, or other blood disorder? No2) Does the patient have allergies to medications, food, a vaccine component, or latex? No3) Does the patient have cancer, leukemia, AIDS, or any other immune system problem? No4) Does the patient live with or expect to have close contact with a person whose immune system is severely compromised and who must be in protective isolation (e.g., an isolation room of a bone marrow transplant unit)? No5) Does the patient take cortisone, prednisone, other steroids, or anticancer drugs, or has the patient had radiation treatments? No6) During the past year, has the patient received a transfusion of blood or blood products, or been given immune (gamma) globulin or an antiviral drug? No7) For women: Is the patient or is there a chance she could become during the next month? No8) Has the patient ever had a serious reaction to a vaccine in the past? No9) Has the patient had a seizure or a brain or other nervous system problem? No10) Has the patient received any vaccinations in the past 4 weeks? No11) Is the patient older than age 49 years? No12) Is the patient sick today? No13) Vaccine information given and explained to patient? YesVaccines Administered/Entered:Vaccination Group: InfluenzaSeries: 1Vaccination: Flulaval Quadrivalent Intramuscular Suspension Prefilled Syringe 0.5 MLMfr / Lot# / Exp.Date: Fast Orientation / [id number] / 1Amt. Given / Route / Site: 0.5 mL / IM / Right DeltoidNDC / CVX: [id number] / 150Administered Date: 05/18/2020 10:03VFC Eligibility: Not VFC EligibleVIS Date: 03/25/2019VIS Given / VIS Given On: Yes / 05/18/2020Comments: Administered by: Janene Gonzáles Name Value Range Interpretation Code Description Data Carole rce(s) Supporting Document(s) ID Date Data Source [id number] 04/12/2020 10:52:24 AM EDT [facility] Measurements & CalculationsHeight: 71 inches (5 ft. 11 in.) 180.34 cm Weight: 266 pounds 5 oz. 121.05 kg Body Mass Index (BMI): 37.28BMI Interpretation: ObeseBody Surface Area (BSA): 2.38Weight Management Education Done (Nutrition/Physical Activity)Vital SignsTemperature: 98.6F oral Pulse Rate: 77 beats/minuteRespiratory Rate: 18 respirations/minuteBlood Pressure: 141/96 right arm sitting automaticO2 Saturation: 97% room airVital Signs performed by: Kurt Enamorado LPN, April 12, 2020 11:18 AMInitial Intake Information From: patientRoom #: 14Infectious Disease / Travel ScreeningRecent travel for you or any close contacts? NoHave you had any close contact with anyone diagnosed with or under investigation for COVID-19 (coronavirus)? NoFever? NoRespiratory symptoms: cough, cold, congestion, shortness of breath, difficulty breathing? NoLoss of smell? NoLoss of taste? NoSmoking, Tobacco, Vaping or Smoke Exposure StatusSmoke Status: current every day smokerTobacco Use: YesAdv to Quit: YesDo you vape? NoPassive Smoke Exposure: NoHealthcare HistorySince your last office visit...Have you been admitted to the hospital? NoHave you been to an emergency room (ER) or urgent care clinic? NoHave you seen another healthcare provider? NoHave you seen a dentist? NoIntake performed by: Kurt Enamorado LPN, April 12, 2020 10:59 AMRate Your HealthIn general, would you say your health is? FairPain AssessmentAre you currently having any pain which... You would like your provider to address? No Affects your activity level? NoDepression Screening - PHQ-2Over the last two weeks, have you... Had little interest or pleasure in doing things? Not at all Been feeling down, depressed, or hopeless? Not at all PHQ-2 Score: 0Anxiety Screening - NISHI-2Over the last two weeks, have you been... Feeling nervous, anxious, or on edge? Not at all Unable to stop or control worrying? Not at all NISHI-2 Score: 0Food InsecurityWithin the past year...Did you worry whether your food would run out before you got money to buy more? Never trueWas there a time when the food you bought didn't last and you didn't have money to get more? Never truePatient Learning & Communication Needs Preferred learning style: verbalPossible barriers: nonePatient's Language used in visit: YesLanguage: pashto Screening, Brief Intervention, & Referral to Treatment (SBIRT)Pre-Screening Questions How many times have you have 5 or more drinks in a day? 0How many times have you used an illegal drug or used a prescription medication for a non-medical reason? 0Performed by: Kurt Enamorado LPN, April 12, 2020 11:00 AMPatient History Family History:Hypertension (Mother)Cancer - Lung (Mother)Rheumatoid arthritis (Mother)Anxiety (Father)Depression (Father)Suicide attempts (Father)Substance abuse (Father)[place] - Male under age 55 (Maternal Grandfather)Myocardial infarction ([place]) (Paternal Grandfather)Cancer - Colorectal (Maternal Grandmother)Cancer - Lung (Paternal Grandmother)Social/Personal History: Advised to Quit/Tobacco Education: YesChief ComplaintNew PE/ BP check RM 14 History of Present Illness (HPI)34 yo male PT here today as a a new Pt with BP check. Pt denies pain at this time. Pt states he is not on medication at this time. Has had issues with his blood pressure being high for several years. He recently applied for life insurance and was denied because his blood pressure was high. Blood tests per patient were normal. Feeling well.Staying active. 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 This has been going on for a while. Does not wake up tired. No morning headaches. Does not fall asleep sitting in a chair reading or watching TV. HPI performed by: Nando Diaz MD, April 12, 2020 11:32 AMMedication Reconciliation & ReviewMedication List was reviewed and/or updated during this visit, including review of any zuti-ibg-dnriqus medications, herbal therapies, and/or supplements.Allergy ReviewAllergy List was reviewed and/or updated during this visit.Adult Preventive CareProvider Calculated and Reviewed all Clinical Protocols for patient today. Screening Tobacco Screening: Smoking Status: current every day smoker (04/12/2020) Tobacco Use: Currently (04/12/2020) Advised to Quit: Yes (04/12/2020)Labs/Meds/Other Counseling-Nutrition and Physical Activity:BMI Interpretation: Obese (04/12/2020) Counseling: Done (04/12/2020) Physical Activity: Done (04/12/2020)Review of Systems General: Denies chills, dizziness, fatigue, fever. Cardiovascular: Denies chest pain, palpitations. Respiratory: Denies cough, difficulty breathing, shortness of breath. Gastrointestinal: Denies diarrhea, constipation. Genitourinary: Denies pain with urination, urinary frequency, urinary urgency, incomplete emptying. Physical ExamGeneral Appearance: well nourished, well hydrated, no acute distressRespiratory, Auscultation: clear to auscultation bilaterally; no rales, rhonchi, or wheezesRespiratory, Effort: no intercostal retractions or use of accessory musclesCardiovascular, Auscultation: S1, S2 audible; no murmur, rub, or gallop; RRRPeripheral Circulation: no clubbing, cyanosis, edema, or varicositiesGait & Station: normalSkin, Inspection: no rashes, lesions, or ulcerationsOrientation: oriented to time, place, and personMood & Affect: no depression, anxiety, or agitationJudgment & Insight: intactRate Your HealthIn general, would you say your health is? FairAssessment & Plan Problems:Added: Essential hypertension (ICD-401.9) ([id number]) Assessment: Instructions: Start Losartan as it sounds as if his mom had good experieince with this.Diet and exercise.I suspect that he may have sleep apnea. He is currently refusing referral to pulmonogy and understands the risks of untrreated sleep apnea.Patient Instructions/Care Plan: Essential hypertension: Start Losartan as it sounds as if his mom had good experieince with this.Diet and exercise.Declining blood tests at this time. Had them with the insurance company. He will track down the records.I suspect that he may have sleep apnea. He is currently refusing referral to pulmonogy and understands the risks of untrreated sleep apnea. Plan developed in collaboration with patient and/or familyMedications:COZAAR 50 MG ORAL TABLETMedication Changes:New Prescription:COZAAR 50 MG ORAL TABLET-One tablet by mouth every day Qty: 30[Tablet] Refills: 2 Method: ElectronicOrders:Adult - Ofc Vst, NEW, Level II [CPT-45573] Follow-Up Return to clinic: 1 month for follow up Name Value Range Interpretation Code Description Data Carole rce(s) Supporting Document(s) Procedure Vital Signs ID Date Data Source UNK Name Value Range Interpretation Code Description Data Source(s) Oxygen saturation in Arterial blood by Pulse oximetry 99 % 99 % eCW1 ([facility]) Respiratory rate 16 /min 16 /min eCW1 ([facility]) Heart rate 67 /min 67 /min eCW1 ([facility]) Body temperature 98.2 [degF] 98.2 [degF] eCW1 ( [facility]) Body mass index (BMI) [Ratio] 34.61 kg/m2 34.61 kg/m2 eCW1 ([facility]) Body weight 221 [lb_av] 221 [lb_av] eCW1 ([facility]) Body height 67 [in_i] 67 [in_i] eCW1 ([facility]) Oxygen saturation in Arterial blood by Pulse oximetry 97 % 97 % eCW1 ([facility]) Respiratory rate 18 /min 18 /min eCW1 ([facility]) Heart rate 81 /min 81 /min eCW1 ([facility]) Body temperature 98.4 [degF] 98.4 [degF] eCW1 ( [facility]) Body height 67 [in_i] 67 [in_i] eCW1 ([facility]) Body weight 3704 [oz_av] 3704 [oz_av] [facility] ([facility]) Systolic blood pressure 126 mm[Hg] 126 mm[Hg] A THENA ([facility]) Body mass index (BMI) [Ratio] 32.3 kg/m2 32.3 k g/m2 [facility] ([facility]) Body height 71 [in_i] 71 [in_i] [facility] ([facility]) Diastolic blood pressure 81 mm[Hg] 81 mm[Hg] [facility] ([facility]) Body weight 4260.96 [oz_av] 4260.96 [oz_av] ATH JOSHUA ([facility]) Systolic blood pressure 141 mm[Hg] 141 mm[Hg] A MARILUZ ([facility]) Body height 71 [in_i] 71 [in_i] [facility] ([facility]) Diastolic blood pressure 96 mm[Hg] 96 mm[Hg] [facility] ([facility])
--- OUTSIDE RECORDS SUMMARY | 2020-09-11 21:53 | CCD ---
Author Author [facility] Organization [facility] Address Unknown Phone Unavailable Care Team Providers Care Room Service Server Name Role Phone Mary Diaz MD Unavailable [...] Unavailable Unavailable Mary Diaz MD Unavailable Unavailable Mray Diaz MD Unavailable Unavailable Mary Diaz MD [...] Unavailable Unavailable Mary Diaz MD Unavailable Unavailable aMry Diaz MD Unavailable Unavailable Adry, Reginah W Colleen [facility]ATION [facility] AIDE-C Unavailable Unavailabl e Adry, Reginah W Colleen REHABILITATION SERVICES AIDE-C Unavailable Unavailabl e Adry, Reginah W Colleen REHABILITATION SERVICES AIDE-C Unavailable Unavailabl e Adry, Reginah W Colleen REHABILITATION SERVICES AIDE-C Unavailable Unavailabl e Adry, Reginah W Colleen REHABILITATION SERVICES AIDE-C Unavailable Unavailabl e Adry, Reginah W Colleen REHABILITATION SERVICES AIDE-C Unavailable Unavailabl e Adry, Reginah W Colleen REHABILITATION SERVICES AIDE-C Unavailable Unavailabl e Adry, Reginah W Colleen REHABILITATION SERVICES AIDE-C Unavailable Unavailabl e Adry, Reginah W Colleen REHABILITATION SERVICES AIDE-C Unavailable Unavailabl e Adry, Reginah W Colleen REHABILITATION SERVICES AIDE-C Unavailable Unavailabl e Adry, Reginah W Colleen REHABILITATION SERVICES AIDE-C Unavailable Unavailabl e Adry, Reginah W Colleen REHABILITATION SERVICES AIDE-C Unavailable Unavailabl e Adry, Vinod W Colleen REHABILITATION SERVICES AIDE-C Unavailable Unavailabl e Adry, Vinod W Colleen REHABILITATION [facility] AIDE-C Unavailable Unavailabl e Adry, Manuelinaelmer W Colleen REHABILITATION SERVICES AIDE-C Unavailable Unavailabl e Adry, Vinod W Colleen REHABILITATION SERVICES AIDE-C Unavailable Unavailabl e Adry, Reginaelmer W Colleen REHABILITATION SERVICES AIDE-C Unavailable Unavailabl e Adry, Reginaelmer W Colleen REHABILITATION SERVICES AIDE-C Unavailable Unavailabl e Adry, Reginaelmer W Colleen REHABILITATION SERVICES AIDE-C Unavailable Unavailabl e Adry, Reginaelmer W Colleen REHABILITATION SERVICES AIDE-C Unavailable Unavailabl e Adry, Manuelinaelmer W Colleen REHABILITATION SERVICES AIDE-C Unavailable Unavailabl e Adry, Vinod W Colleen REHABILITATION SERVICES AIDE-C Unavailable Unavailabl e Adry, Vinod W Colleen REHABILITATION SERVICES AIDE-C Unavailable Unavailabl e Adry, Vinod W Colleen REHABILITATION SERVICES AIDE-C Unavailable Unavailabl e Adry, Manuelinaelmer W Colleen REHABILITATION SERVICES AIDE-C Unavailable Unavailabl e Adry, Vinod W Colleen REHABILITATION SERVICES AIDE-C Unavailable Unavailabl e Adry, Vinod W Colleen REHABILITATION SERVICES AIDE-C Unavailable Unavailabl e Adry, Vinod W Colleen REHABILITATION SERVICES AIDE-C Unavailable Unavailabl e Adry, Vinod W Colleen REHABILITATION SERVICES AIDE-C Unavailable Unavailabl e Adry, Vinod W Colleen REHABILITATION SERVICES AIDE-C Unavailable Unavailabl e Adry, Vinod W Colleen REHABILITATION SERVICES AIDE-C Unavailable Unavailabl e Adry, Regfranco W Colleen REHABILITATION SERVICES AIDE-C Unavailable Unavailabl e Mary Diaz MD Unavailable [...] Unavailable Mary Diaz MD Unavailable Unavailable Mary Daiz MD Unavailable Unavailable Mary Diaz MD Unavailable [...] PA Unavailable Unavailable Adry, Reginah W Colleen REHABILITATION SERVICES AIDE-C Unavailable Unavailabl e Adry, Reginah W Colleen REHABILITATION SERVICES AIDE-C Unavailable Unavailabl e Adry, Reginah W Colleen REHABILITATION SERVICES AIDE-C Unavailable Unavailabl e Adry, Reginah W Colleen REHABILITATION SERVICES AIDE-C Unavailable Unavailabl e Adry, Regina W Colleen REHABILITATION SERVICES AIDE-C Unavailable Unavailabl e Adry, Regina W Colleen REHABILITATION SERVICES AIDE-C Unavailable Unavailabl e Adry, Regina W Colleen REHABILITATION SERVICES AIDE-C Unavailable Unavailabl e Adry, Regina W Colleen REHABILITATION SERVICES AIDE-C Unavailable Unavailabl e Adry, Regina W Colleen REHABILITATION SERVICES AIDE-C Unavailable Unavailabl e Adry, Regina W Colleen REHABILITATION SERVICES AIDE-C Unavailable Unavailabl e Adry, Regina W Colleen REHABILITATION SERVICES AIDE-C Unavailable Unavailabl e Adry, Regina W Colleen REHABILITATION SERVICES AIDE-C Unavailable Unavailabl e Adry, Regina W Colleen REHABILITATION SERVICES AIDE-C Unavailable Unavailabl e Adry, Regina W Colleen REHABILITATION SERVICES AIDE-C Unavailable Unavailabl e Adry, Regina W Colleen REHABILITATION SERVICES AIDE-C Unavailable Unavailabl e Dary, Reginah W Colleen REHABILITATION SERVICES AIDE-C Unavailable Unavailabl e Adry, Reginah W Colleen REHABILITATION SERVICES AIDE-C Unavailable Unavailabl e Adry, Reginah W Colleen REHABILITATION SERVICES AIDE-C Unavailable Unavailabl e Adry, Reginah W Colleen REHABILITATION SERVICES AIDE-C Unavailable Unavailabl e Adry, Reginah W Colleen REHABILITATION SERVICES AIDE-C Unavailable Unavailabl e Adry, Reginah W Colleen REHABILITATION SERVICES AIDE-C Unavailable Unavailabl e Adry, Reginah W Colleen REHABILITATION SERVICES AIDE-C Unavailable Unavailabl e Adry, Reginah W Colleen REHABILITATION SERVICES AIDE-C Unavailable Unavailabl e Adry, Reginah W Colleen REHABILITATION SERVICES AIDE-C Unavailable Unavailabl e Adry, Reginah W Colleen REHABILITATION SERVICES AIDE-C Unavailable Unavailabl e Adry, Reginah W Colleen REHABILITATION SERVICES AIDE-C Unavailable Unavailabl e Adry, Reginah W Colleen REHABILITATION SERVICES AIDE-C Unavailable Unavailabl e Adry, Reginah W Colleen REHABILITATION SERVICES AIDE-C Unavailable Unavailabl e Adry, Reginah W Colleen REHABILITATION SERVICES AIDE-C Unavailable Unavailabl e Adry, Reginah W Colleen REHABILITATION SERVICES AIDE-C Unavailable Unavailabl e Adry, Reginaelmer W Colleen REHABILITATION SERVICES AIDE-C Unavailable Unavailabl e Adry, Reginah W Colleen REHABILITATION SERVICES AIDE-C Unavailable Unavailabl e [facility] Unavailable Unavailable [...] is protected by Article 27-F of the [facility] Public Health law. If you continue you may have access to information: Regarding HIV / AIDS; Provided by facilities licensed or operated by the [facility] Office of Mental Health; or Provided by the [facility] Office for People With Developmental Disabilities. If such information is present, then the following [facility] mandated warning applies: This information has been [...] law may result in a fine or correction sentence or both. A general authorization for the release of medical or other information is NOT sufficient authorization for further disc losure. Encounters Encounter Providers Location Date Indications Data Source(s ) Outpatient Attender: Colleen RUIZ EMERGENCY ROOM-LAB REF 09/07/2020 03:05:00 PM EST - 09/07/2020 03:05:00 PM [facility] Outpatient Attender: Colleen SHARMACConsultant: [facility] [id number] 09/07/2020 03:00:00 PM [facility] Outpatient Attender: Colleen RUIZ 09/07/2020 02:10:0 0 PM [facility]patient [facility] 09/07/2020 12:00:00 AM EST eCW1 ([facility]) Outpatient Attender: Aylin HOFFMAN EMERGENCY ROOM-LAB R EF 08/28/2020 03:45:00 PM EST - 08/28/2020 03:45:00 PM EST [facility] Outpatient Attender: Aylin HOFFMAN 08/28/2020 03:40:00 PM [facility] Outpatient Attender: Aylin Smith PAConsultant: [facility] [id number] 08/28/2020 03:38:00 PM EST [facility] Outpatient [facility] 08/28/2020 12:00:00 AM EST eCW1 ([facility]) Nando Diaz MD: [address] [place] [phone], Ph. Attender: Nando Diaz MD [facility] Medical 08/17/2020 12:00:00 AM EST NHI ([facility]) Outpatient Attender: Nando Diaz MD 05/31/2020 10:01:01 [...] 09:04:00 AM EST completed 08/17/2020 0.5 mL DOTHAN ([facility]) Medications Medication Brand Name Start Date Product [...] TABLET BY MOUTH EVERY DAY SOLD: 04/13/2020 [facility] Insurance Providers Payer name Policy type / Coverage type Policy ID Covered libertarian ID Covered libertarian's relationship to foley Policy Foley Plan Information [place] PPO 302/[phone] [id number] [employer] [place] [id number] SPO VYS [id number] SELF PAY ONLY [id number] SP [id number] Self Pay P [id number] S [id number] Self Pay P UNAVAILABLE S UNAVAILA BLE SELF PAY ONLY UNAVAILABLE SP UNAV AILABLE Problems, Conditions, and Diagnoses Code Display Name Description Problem Type Effective Dates Data Source(s) V04.81 Needs vaccination for influenza Needs vaccination for influenza 05/19/2020 12:21:46 PM EDT [facility] 401.9 Essential hypertension Essential hypertension 04/12/2020 02:55:40 PM EDT [facility] [id number] Hypertensive disorder Hypertensive Disorder Problem 04/12/2020 12:00:00 AM EDT [facility]) R35.0 Frequency of micturition FREQUENCY OF MICTURITION Diag nosis 09/07/2020 03:05:00 PM [facility] R30.0 Dysuria DYSURIA Diagnosis 08/28/2020 03:40:00 PM [facility] N30.01 Acute cystitis with hematuria ACUTE CYSTITIS WITH OJ TURIA Diagnosis 08/28/2020 03:40:00 PM [facility] Results ID Date Data Source [id number] 09/11/2020 02:35:00 PM [facility] Name Value Range Interpretation Code Description Data Carole rce(s) Supporting Document(s) [facility] ID Date Data Source [id number] 09/07/2020 03:24:00 PM [facility] Name Value Range Interpretation Code Description Data Carole rce(s) Supporting Document(s) URINE RBC 15-20 /hpf 0-3 [facility] URINE WBC 0-2 /hpf 0-5 [facility] URINE BACTERIA 1+ NONE SEEN [facility] URINE MUCUS 2+ NEGATIVE [facility] ID Date Data Source [id number] 09/07/2020 03:24:00 PM [facility] Name Value Range Interpretation Code Description Data Carole rce(s) Supporting Document(s) URINE COLOR. DARK YELLOW [facility] URINE APPEARANCE CLEAR [facility] URINE GLUCOSE (UA) NEGATIVE mg/dL NEGATIVE [facility] URINE BILIRUBIN NEGATIVE NEGATIVE [facility] URINE KETONE NEGATIVE mg/dL NEGATIVE [facility] al SPECIFIC GRAVITY,URINE 1.025 1.001-1.035 [facility] URINE BLOOD 2+(MODERATE) NEGATIVE [facility] PH,URINE 5.5 5.0-9.0 [facility] URINE PROTEIN NEGATIVE mg/dL NEGATIVE [facility] URINE UROBILINOGEN NORMAL(0.2-1) mg/dL 0-1 [facility] URINE NITRATE NEGATIVE NEGATIVE [facility] URINE LEUKOCYTE ESTERASE NEGATIVE NEGATIVE [facility] ID Date Data Source [id number] 09/07/2020 12:00:00 AM EST eCW1 ([facility]) Name Value Range Interpretation Code Description Data Carole rce(s) Supporting Document(s) DARK YELLOW URINE COLOR. eCW1 ([facility]) NEGATIVE NEGATIVE URINE BILIRUBIN eCW1 ([facility]) CLEAR URINE APPEARANCE eCW1 ([facility]) NEGATIVE NEGATIVE URINE GLUCOSE (UA) eCW1 ( [facility]) NEGATIVE NEGATIVE URINE KETONE eCW1 ([facility]) 5.5 5.0-9.0 PH,URINE eCW1 ([facility]) 2+(MODERATE) NEGATIVE URINE BLOOD eCW1 ([facility]) 1.025 1.001-1.035 SPECIFIC GRAVITY,URINE e CW1 ([facility]) NEGATIVE NEGATIVE URINE PROTEIN eCW1 ([facility]) NEGATIVE NEGATIVE URINE LEUKOCYTE ESTERASE eCW1 ([facility]) NORMAL(0.2-1) 0-1 URINE UROBILINOGEN eCW 1 ([facility]) NEGATIVE NEGATIVE URINE NITRATE eCW1 ([facility]) ID Date Data Source [id number] 08/31/2020 01:28:00 PM EST [facility] Name Value Range Interpretation Code Description Data Carole rce(s) Supporting Document(s) [facility] ID Date Data Source [id number] 08/28/2020 04:03:00 PM [facility] Name Value Range Interpretation Code Description Data Carole rce(s) Supporting Document(s) URINE RBC 1-3 /hpf 0-3 [facility] URINE WBC 1-3 /hpf 0-5 [facility] ID Date Data Source [id number] 08/28/2020 03:56:00 PM EST [facility] l Name Value Range Interpretation Code Description Data Carole rce(s) Supporting Document(s) URINE COLOR. [facility] URINE APPEARANCE CLEAR [facility] l URINE GLUCOSE (UA) NEGATIVE mg/dL NEGATIVE [facility] URINE BILIRUBIN NEGATIVE NEGATIVE [facility] URINE KETONE NEGATIVE mg/dL NEGATIVE [facility] SPECIFIC GRAVITY,URINE 1.025 1.001-1.035 [facility] URINE BLOOD TRACE NEGATIVE H [facility] PH,URINE 5.5 5.0-9.0 [facility] URINE PROTEIN NEGATIVE mg/dL NEGATIVE [facility] URINE UROBILINOGEN NORMAL(0.2-1) mg/dL 0-1 [facility] URINE NITRATE NEGATIVE NEGATIVE [facility] URINE LEUKOCYTE ESTERASE NEGATIVE NEGATIVE [facility] ID Date Data Source [id number] 08/17/2020 09:00:00 AM EST [facility]) Name Value Range Interpretation Code Description Data Carole rce(s) Supporting Document(s) thyroid stimulating hormone 0.879 uIU/mL 0.358-3.740 normal Thyroid Stimulating Hormone NHI ([facility]) ID Date Data Source [id number] 08/17/2020 09:00:00 AM EST NHI ([facility]) Name Value Range Interpretation Code Description Data Carole rce(s) Supporting Document(s) triglycerides level 149 mg/dL <150 normal Triglycerides Le марина NHI ([facility]) cholesterol level 183 mg/dL <200 normal Cholesterol Level NHI ([facility]) HDL cholesterol 61 mg/dL >40 normal HDL Cholesterol ATHE ([facility]) Cholesterol in LDL [Mass/volume] in Serum or Plasma 92 mg/dL <1 00 normal LDL Cholesterol NHI ([facility]) cholesterol risk ratio <5 normal Cholesterol R isk Ratio NHI ([facility]) non-HDL-C 122 mg/dL normal Non-hdl-c NHI ([facility]) ID Date Data Source [id number] 08/17/2020 09:00:00 AM EST NHI ([facility]) Name Value Range Interpretation Code Description Data Carole rce(s) Supporting Document(s) blood urea nitrogen 15 mg/dL 7-18 normal Blood Urea Nitro gen NHI ([facility]) glucose, fasting 120 mg/dL 70-100 Above high normal Glucose, Fas ting NHI ([facility]) sodium level 143 mEq/L 136-145 normal Sodium Level NHI ([facility]) creatinine for GFR 0.95 mg/dL 0.70-1.30 normal Creatinine for GF R NHI ([facility]) glomerular filtration rate > 60.0 >60 normal [place] r Filtration Rate NHI ([facility]) potassium serum 4.6 mEq/L 3.5-5.1 normal Potassium Serum ATHE NA ([facility]) carbon dioxide level 28 mEq/L 21-32 normal Carbon Dioxide Level NHI ([facility]) anion gap 7 mEq/L 8-16 Below low normal Anion Gap NHI ( [facility]) chloride level 108 mEq/L 98-107 Above high normal Chloride Level NHI ([facility]) alkaline phosphatase 84 U/L 45-117 normal Alkaline Phosph atase NHI ([facility]) ALT/SGPT 40 U/L 12-78 normal ALT/SGPT NHI ([facility]) calcium level 9.0 mg/dL 8.5-10.1 normal Calcium Level NHI ( [facility]) bilirubin,total 0.3 mg/dL 0.2-1.0 normal Bilirubin,total ATHE NA ([facility]) AST/SGOT 15 U/L 7-37 normal AST/SGOT NHI ([facility]) total protein 7.3 gm/dL 6.4-8.2 normal Total Protein NHI ( [facility]) albumin/globulin ratio normal Albumin/globu sanchez Ratio NHI ([facility]) albumin 4.5 gm/dL 3.2-5.2 normal Albumin NHI ([facility]) ID Date Data Source [id number] 08/17/2020 09:00:00 AM EST NHI ([facility]) Name Value Range Interpretation Code Description Data Carole rce(s) Supporting Document(s) white blood count 6.1 10 4.0-10.0 normal White Blood Count NHI ([facility]) red blood count 4.94 10 4.30-6.10 normal Red Blood Count ATHE ([facility]) hemoglobin 15.0 g/dL 13.5-17.5 normal Hemoglobin NHI ([facility]) mean corpuscular volume 90.7 fL 80.0-96.0 normal Mean Corpusc ular Volume NHI ([facility]) hematocrit 44.8 % 42.0-52.0 normal Hematocrit NHI ([facility]) mean corpuscular hemoglobin 30.4 pg 27.0-33.0 normal Mean Corpuscular Hemoglobin NHI ([facility]) red cell distribution width 12.2 % 11.5-14.5 normal Red Cell Distribution Width NHI ([facility]) mean corpuscular HGB conc 33.5 g/dL 32.0-36.5 normal Mean Corpu scular HGB Conc NHI ([facility]) platelet count, automated 175 10 150-450 normal Platelet C ount, Automated DOTHAN ([facility]) neutrophils % 63.6 % 36.0-66.0 normal Neutrophils % DOTHAN ( [facility]) mono % 6.2 % 0.0-5.0 Above high normal [place] % DOTHAN ([facility]) eos % 4.1 % 0.0-3.0 Above high normal Eos % DOTHAN ([facility]) baso % 0.5 % 0.0-1.0 normal Baso % DOTHAN ([facility]) lymph % 25.4 % 24.0-44.0 normal Lymph % DOTHAN ([facility]) neutrophils # 3.9 10 1.5-8.5 normal Neutrophils # DOTHAN ( [facility]) lymph # 1.6 10 1.5-5.0 normal Lymph # DOTHAN ([facility]) nucleated red blood cell % 0.0 % 0-0 normal Nucleated Red Blood Cell % DOTHAN ([facility]) immature granulocyte % 0.2 % 0-3.0 normal Immature Gran ulocyte % DOTHAN ([facility]) mono # 0.4 10 0.0-0.8 normal [place] # DOTHAN ([facility]) eos # 0.3 10 0.0-0.5 normal Eos # DOTHAN ([facility]) baso # 0.0 10 0.0-0.2 normal Baso # DOTHAN ([facility]) ID Date Data Source [id number] 05/18/2020 08:16:53 AM EDT [facility] [...] arthritis (Mother)Anxiety (Father)Depression (Father)Suicide attempts (Father)Substance abuse (Father)[place] - Male under age 55 (Maternal Grandfather)Myocardial infarction ([place]) (Paternal Grandfather)Cancer - Colorectal (Maternal Grandmother)Cancer - [...] during this visit, including review of any mqrq-nim-pkeujpt medications, herbal therapies, and/or supplements.Allergy ReviewAllergy List [...] is? FairAssessment & Plan Problems:Assessed:Essential hypertension (ICD-401.9) ([id number]) Assessment: Instructions: Blood pressure is still a [...] Orders:Adult - Ofc Vst, EST, Level III [CPT-57538] Medications:COZAAR 50 MG ORAL TABLET (LOSARTAN POTASSIUM) One tablet by mouth every day #30[Tablet] x 2 Route:OR AL Entered and Authorized by: Nando Diaz MD Method used: Electronically to [facility] (retail) [address] [place] [address] Note to Pharmacy: Route: ORAL; RxID: [id number] signed by Nanod Diaz MD on 05/18/2020 at 9:51 AM [...] Syringe 0.5 MLMfr / Lot# / Exp.Date: Catapooolt / [id number] / 1Amt. Given / Route / Site: 0.5 mL / IM / Right DeltoidNDC / CVX: [id number] / 150Administered Date: 05/18/2020 10:03VFC Eligibility: Not VFC EligibleVIS Date: 03/25/2019VIS Given / VIS Given On: Yes / 05/18/2020Comments: Administered by: Janene Gonzáles Name Value Range Interpretation Code Description Data Carole rce(s) Supporting Document(s) ID Date Data Source [id number] 04/12/2020 10:52:24 AM EDT [facility] [...] barriers: nonePatient's Language used in visit: YesLanguage: uzbek Screening, Brief Intervention, & Referral to Treatment [...] arthritis (Mother)Anxiety (Father)Depression (Father)Suicide attempts (Father)Substance abuse (Father)[place] - Male under age 55 (Maternal Grandfather)Myocardial infarction ([place]) (Paternal Grandfather)Cancer - Colorectal (Maternal Grandmother)Cancer - [...] during this visit, including review of any uyqz-mwk-svyqyfr medications, herbal therapies, and/or supplements.Allergy ReviewAllergy List [...] FairAssessment & Plan Problems:Added: Essential hypertension (ICD-401.9) (SFP01-P65) Assessment: Instructions: Start Losartan as it sounds [...] ElectronicOrders:Adult - Ofc Vst, NEW, Level II [CPT-47715] Follow-Up Return to clinic: 1 month for follow up Name Value Range Interpretation Code Description Data Carole rce(s) Supporting Document(s) Procedure Vital Signs ID Date Data Source UNK Name Value Range Interpretation Code Description Data Source(s) Oxygen saturation in Arterial blood by Pulse oximetry 99 % 99 % eCW1 ([facility]) Respiratory rate 16 /min 16 /min eCW1 ([facility]) Heart rate 67 /min 67 /min eCW1 ([facility]) Body temperature 98.2 [degF] 98.2 [degF] eCW1 ( [facility]) Body mass index (BMI) [Ratio] 34.61 kg/m2 34.61 kg/m2 eCW1 ([facility]) Body weight 221 [lb_av] 221 [lb_av] eCW1 ([facility]) Body height 67 [in_i] 67 [in_i] eCW1 ([facility]) Oxygen saturation in Arterial blood by Pulse oximetry 97 % 97 % eCW1 ([facility]) Respiratory rate 18 /min 18 /min eCW1 ([facility]) Heart rate 81 /min 81 /min eCW1 ([facility]) Body temperature 98.4 [degF] 98.4 [degF] eCW1 ( [facility]) Body height 67 [in_i] 67 [in_i] eCW1 ([facility]) Body weight 3704 [oz_av] 3704 [oz_av] NHI ([facility]) Systolic blood pressure 126 mm[Hg] 126 mm[Hg] A THENA ([facility]) Body mass index (BMI) [Ratio] 32.3 kg/m2 32.3 k g/m2 NHI ([facility]) Body height 71 [in_i] 71 [in_i] NHI ([facility]) Diastolic blood pressure 81 mm[Hg] 81 mm[Hg] NHI ([facility]) Body weight 4260.96 [oz_av] 4260.96 [oz_av] ATH JOSHUA ([facility]) Systolic blood pressure 141 mm[Hg] 141 mm[Hg] A MARILUZ ([facility]) Body height 71 [in_i] 71 [in_i] NHI ([facility]) Diastolic blood pressure 96 mm[Hg] 96 mm[Hg] NHI ([facility])
[2020-09-11 23:36] LABS: CHLAMYDIA DNA AMPLIFICATION NEGATIVE (NEGATIVE); GC DNA AMPLIFICATION NEGATIVE (NEGATIVE)
[2020-09-11] MEDS ORDERED: ISOVUE-370 76% 100ML VIAL As Ordered ONE (23:56)
[2020-09-12 00:14] LABS: BASO # 0.1 10^3/uL (0.0-0.2); BASO % 0.5 % (0.0-1.0); EOS # 0.2 10^3/uL (0.0-0.5); EOS % 2.2 % (0.0-3.0); HEMATOCRIT 40.9 % (42.0-52.0); HEMOGLOBIN 13.7 g/dl (13.5-17.5); LYMPH # 1.8 10^3/uL (1.5-5.0); MEAN CORPUSCULAR HGB CONC 33.5 g/dl (32.0-36.5); MEAN CORPUSCULAR VOLUME 89.7 fl (80.0-96.0); MONO # 0.8 10^3/uL (0.0-0.8); MONO % 7.4 % (0.0-5.0); NEUTROPHILS # 8.1 10^3/uL (1.5-8.5); NEUTROPHILS % 73.4 % (36.0-66.0); PLATELET COUNT, AUTOMATED 179 10^3/uL (150-450); RED BLOOD COUNT 4.56 10^6/uL (4.30-6.10); WHITE BLOOD COUNT 11.1 10^3/uL (4.0-10.0)
--- NOTE | 2020-09-12 00:26 | REPVR ---
PROCEDURE INFORMATION: Exam: CT Abdomen And Pelvis With Contrast Exam date and time: 09/11/2020 11:01 PM Age: 34 years old Clinical indication: Abdominal pain; Flank; Right; Additional info: Polyuria, right flank pain TECHNIQUE: Imaging protocol: Computed tomography of the abdomen and pelvis with contrast. Radiation optimization: All CT scans at this facility use at least one of these dose optimization techniques: automated exposure control; mA and/or kV adjustment per patient size (includes targeted exams where dose is matched to clinical indication); or iterative reconstruction. Contrast material: ISO; Contrast volume: 100 ml; Contrast route: INTRAVENOUS (IV); COMPARISON: No relevant prior studies available. FINDINGS: Liver: Normal. No mass. Gallbladder and bile ducts: The gallbladder is somewhat contracted with no stones. Pancreas: Normal. No ductal dilation. Spleen: Normal. No splenomegaly. Adrenal glands: Normal. No mass. Kidneys and ureters: There is a right renal cyst measuring 7 mm which is too small to characterize. Mild right hydronephrosis and hydroureter which extends to a right UVJ calculus measuring 5 x 4 mm. There is slight edema of the right UVJ. Stomach and bowel: Unremarkable. No obstruction. No mucosal thickening. Appendix: A normal appendix is seen. Intraperitoneal space: Unremarkable. No free air. No significant fluid collection. Vasculature: Unremarkable. No abdominal aortic aneurysm. Lymph nodes: Unremarkable. No enlarged lymph nodes. Urinary bladder: Unremarkable as visualized. Reproductive: Unremarkable as visualized. Bones/joints: Unremarkable. No acute fracture. Soft tissues: Unremarkable. IMPRESSION: 1. Right UVJ calculus measuring 5 x 4 mm with obstructive uropathy of the right upper tract. 2. Otherwise negative CT abdomen/pelvis. COMMENTS: Consistent with the [employer]'s Incidental Findings Committee white paper (J [employer]iol 2018): Any incidental renal lesion less than 1 cm or classified as too small to characterize, or any incidental cystic renal lesion characterized as simple-appearing, is likely benign. No follow-up imaging is recommended for these lesions per consensus recommendations based on imaging criteria. Electronically signed by: Nash Sommers On 09/12/2020 00:25:21 AM
[2020-09-12] MEDS ORDERED: KETO10TAB PO (01:06)
[2020-09-12] MEDS ORDERED: FLOM0.4C39 PO (01:06)
[2020-09-12] MEDS ORDERED: CIPR-249 PO (01:06)
[2020-09-12 01:13] VITALS: BP 142/87
[2020-09-12] MEDS ORDERED: TAMSULOSIN 0.4 MG CAP PO ONE (01:15)
[2020-09-12] MEDS ORDERED: KETOROLAC 30 MG/ML 1ML VIAL IV ONE (01:15)
[2020-09-12] MEDS ORDERED: CIPROFLOXACIN 500MG TABLET PO ONE (01:15)
== END 2020-09-12 01:50 | disposition home or self-care (01) ==
LOC: M ED 20:30
DX: N20.1 Calculus of ureter (principal); N13.30 Unspecified hydronephrosis; I10 Essential (primary) hypertension; Z87.891 Personal history of nicotine dependence
CPT/HCPCS: 74177; 80047; 81001; 85025; 87661; 96374; 99284; J1885; Q9967

== ENCOUNTER → 2021-05-04 | Outpatient (REF) | payer BC ==
[~2021-05-04] MED LIST changes: +CIPR-249 PO; +FLOM0.4C39 PO; +KETO10TAB PO
== END ==
LOC: M SMT 12:55
PROVIDERS: ATTEND Urology
DX: Z30.2 Encounter for sterilization (principal)

== ENCOUNTER 2023-12-30 09:32 | Day surgery (SDC) | payer BC ==
[~2023-12-30] VITALS: Ht 180.3 cm; Wt 116.8 kg
[~2023-12-30 09:32] MED LIST changes: +ATOR1TAB19 PO; +OMEP-173 PO; +THERTAB52 PO
[2023-12-30] MEDS: NS 1,000 ML IV ONE (09:59)
[2023-12-30] MEDS ORDERED: LIDOCAINE 2% 100MG/5ML SDV (FOR ANES.) As Ordered ONE (10:32)
[2023-12-30] MEDS ORDERED: propofoL 200 MG/20 ML VIAL As Ordered ONE (10:32)
[2023-12-30] MEDS ORDERED: propofoL 500 MG/50 ML VIAL As Ordered ONE (10:32)
[2023-12-30 11:31] VITALS: BP 137/78; TEMP 98.1; O2SAT 97
== END 2023-12-30 11:25 | disposition home or self-care (01) ==
LOC: M OPP 09:32
PROVIDERS: ATTEND Internal Medicine Gastroenterology
DX: Z12.11 Encounter for screening for malignant neoplasm of colon (principal); Z12.12 Encounter for screening for malignant neoplasm of rectum; K57.30 Diverticulosis of large intestine without perforation or abscess without bleeding; K64.8 Other hemorrhoids; K64.4 Residual hemorrhoidal skin tags; E78.00 Pure hypercholesterolemia, unspecified; D64.9 Anemia, unspecified; Z79.899 Other long term (current) drug therapy; K21.9 Gastro-esophageal reflux disease without esophagitis; Z86.19 Personal history of other infectious and parasitic diseases

== ENCOUNTER 2024-07-29 18:09 | Emergency (ER) | payer BC ==
[~2024-07-29] VITALS: Ht 180.3 cm; Wt 116.0 kg
[2024-07-29 19:00] LABS: BASO # 0.1 10^3/uL (0.0-0.2); BASO % 0.5 % (0.0-1.0); EOS # 0.3 10^3/uL (0.0-0.5); EOS % 2.6 % (0.0-3.0); HEMATOCRIT 41.5 % (42.0-52.0); HEMOGLOBIN 14.6 g/dl (13.5-17.5); LYMPH # 1.5 10^3/uL (1.5-5.0); LYMPH % 13.1 % (24.0-44.0); MEAN CORPUSCULAR HEMOGLOBIN 30.6 pg (27.0-33.0); MEAN CORPUSCULAR HGB CONC 35.2 g/dl (32.0-36.5); MONO # 0.7 10^3/uL (0.0-0.8); MONO % 6.2 % (2.0-8.0); NEUTROPHILS # 8.5 10^3/uL (1.5-8.5); NEUTROPHILS % 77.1 % (36.0-66.0); PLATELET COUNT, AUTOMATED 212 10^3/uL (150-450); RED BLOOD COUNT 4.77 10^6/uL (4.30-6.10)
[2024-07-29 19:29] LABS: ALBUMIN 4.4 G/DL (3.2-5.2); ALKALINE PHOSPHATASE 98 U/L (40-129); ALT/SGPT 41 U/L (7.0-40); AST/SGOT 27 U/L (<34); BILIRUBIN,DIRECT 0.1 MG/DL (<0.4); BILIRUBIN,TOTAL 0.4 MG/DL (0.3-1.2); BLOOD UREA NITROGEN 18 MG/DL (9-23); CALCIUM LEVEL 9.5 MG/DL (8.5-10.1); CARBON DIOXIDE LEVEL 28 MMOL/L (20-31); CHLORIDE LEVEL 105 MMOL/L (98-107); CK-MB VALUE MASS < 1.0 NG/ML (<3.6); CREATININE FOR GFR 0.72 MG/DL (0.70-1.30); GLOMERULAR FILTRATION RATE > 60.0 (>60); GLUCOSE, FASTING 98 MG/DL (60-100); MAGNESIUM LEVEL 1.9 MG/DL (1.8-2.4); POTASSIUM SERUM 3.9 MMOL/L (3.5-5.1); SODIUM LEVEL 144 MMOL/L (136-145)
[2024-07-29 19:30] VITALS: TEMP 97.8
[2024-07-29 19:30] LABS: THYROID STIMULATING HORMONE 3.228 uIU/ML (0.55-4.78)
[2024-07-29 19:33] LABS: CPK CREATINE PHOSPHOKINASE 134 U/L (46-171); MB/CK RELATIVE INDEX 0.74 (< OR =4)
[2024-07-29 21:00] VITALS: BP 167/95
[2024-07-29 21:15] VITALS: O2SAT 97
== END 2024-07-29 21:41 | disposition home or self-care (01) ==
LOC: M ED 18:09
DX: R53.1 Weakness (principal); R42 Dizziness and giddiness; K21.9 Gastro-esophageal reflux disease without esophagitis; I10 Essential (primary) hypertension; E78.5 Hyperlipidemia, unspecified; D64.9 Anemia, unspecified; Z79.02 Long term (current) use of antithrombotics/antiplatelets; Z79.899 Other long term (current) drug therapy